=== PATIENT | female | born 1955 | race Caucasian/White ===

== ENCOUNTER 2016-10-02 15:48 | Emergency (ER) | payer OTHER ==
[2016-10-02 15:57] VITALS: BP 134/69; PULSE 67; TEMP 97.6; BMI 27.4
[2016-10-02] MEDS ORDERED: PANTOPRAZOLE SODIUM 40 MG in SODIUM CHLORIDE 100 ML IVPB ONE (19:38)
[2016-10-02] MEDS ORDERED: ONDANSETRON 4 MG/2 ML VIAL IVPUSH ONE (19:39)
[2016-10-02] MEDS ORDERED: SODIUM CHLORIDE 1,000 ML IV STA (19:39)
[2016-10-02] MEDS ORDERED: morphine CARPU-JECT 4 MG/1 ML DISP.SYRIN IVPUSH ONE (19:39)
[2016-10-02] MEDS ORDERED: morphine CARPU-JECT 2 MG/1 ML DISP.SYRIN ONE (19:54)
[2016-10-02] MEDS ORDERED: ONDANSETRON 4 MG/2 ML VIAL ONE (19:54)
--- NOTE | 2016-10-02 20:12 | PDOC ---
History of Present Illness - General Chief Complaint: Pain Stated Complaint: ABD PAIN Time Seen by Provider: 10/02/16 19:26 History Source: Patient Exam Limitations: No Limitations - History of Present Illness Travel History: No Initial Comments: 10/02/16 20:07 61yo Female patient w/ PmHx: hypothyroidism, abdominal resection r/t SBO, presents to ED c/o abdominal pain which began around 10-11 am this morning and has remained constant. Patient reports vomiting x 1, last Bm today (small amount ), 5/10 abd pain severity reported. She denies diarrhea, constipation, rectal bleeding, dysuria, hematuria, back pain, diff breathing, rash, or any other complaints at this time. Timing/Duration: reports: constant Quality: reports: moderate Abdominal Pain Onset Location: reports: generalized abdomen Pain Radiation: reports: no radiation Activities at Onset: reports: no specific activity Treatment Prior to Arrive: worse with: analgesics, antacids, cold pack, heat, laxative, enema, other Aggravating Factors: worse with: None, Defecation, Eating, Emotional upset, Exertion, [place], Movement, Voiding, Change in position Alleviating Factors: worse with: None, Belching, Shallow Breathing, Defecation, Eating, Holding Breath, Passing Gas, Change in Position, Rest, Voiding, Vomiting Past History - Travel Traveled outside of the country in the last 30 days: No Close contact w/someone who was outside of country & ill: No - Past Medical History Allergies/Adverse Reactions: Allergies Allergy/AdvReac Type Severity Reaction Status Date / Time No Known Allergies Allergy Verified 10/02/16 15:57 Home Medications: Ambulatory Orders Levothyroxine [Synthroid -] 75 mcg PO DAILY 07/22/15 Metronidazole [Flagyl -] 500 mg PO DAILY #20 tablet 10/03/16 Oxycodone HCl/Acetaminophen [Endocet 5-325 Tablet] 1 each PO Q8H PRN #12 tablet MDD 3 tabs 10/03/16 Cancer: Yes (THYROID) Thyroid Disease: Yes - Surgical History Abdominal Surgery: Yes (sbo) - Psycho/Social/Smoking Cessation Hx Anxiety: No Suicidal Ideation: No Smoking Status: No Smoking History: Never smoked Number of Cigarettes Smoked Daily: 0 Hx Alcohol Use: No Drug/Substance Use Hx: No Substance Use Type: None Abd/GI Specific PMHX - Complaint Specific PMHX Colitis: No Diverticulitis: No Gall Bladder Disease: No GERD: No Hepatitis: No Irritable Bowel Synd (IBS): No Pancreatitis: No GI Ulcer Disease: No Review of Systems - Review of Systems Able to Perform ROS?: Yes Is the patient limited Liberian proficient: No Constitutional: No: Chills, Fever Cardiac (ROS): No: Chest Pain ABD/GI: Yes: Vomiting, Abdominal cramping. No: Abdominal Distended, Abd. Pain w / defecation, Blood Streaked Bowels, Constipated, Diarrhea, Difficulty Swallowing, Nausea, Poor Appetite, Poor Fluid Intake, Rectal Bleeding, Indigestion, Tarry Stools : No: Burning, Dysuria, Flank Pain, Hematuria Musculoskeletal: No: Back Pain All Other Systems: Reviewed and Negative *Physical Exam - Vital Signs Last Vital Signs Temp Pulse Resp BP Pulse Ox 97.6 F 67 20 134/69 100 10/02/16 15:54 10/02/16 15:54 10/02/16 15:54 10/02/16 15:54 10/02/16 15:54 - Physical Exam General Appearance: Yes: Nourished, Appropriately Dressed. No: Apparent Distress, Mild Distress, Moderate Distress, Severe Distress Respiratory/Chest: positive: Lungs Clear, Normal Breath Sounds. negative: Chest Tender, Respiratory Distress, Accessory Muscle Use, Labored Respiration, Rapid RR, Stridor, Wheezing Cardiovascular: positive: Regular Rhythm, Regular Rate Gastrointestinal/Abdominal: positive: Tender, Soft, Decreased BS, Tenderness ( Mid abdominal). negative: Distended, Guarding, Rebound Musculoskeletal: positive: Normal Inspection. negative: CVA Tenderness Extremity: positive: Normal Capillary Refill, Normal Inspection, Normal Range of Motion. negative: Pedal Edema, Swelling, Calf Tenderness, Erythema, Inflammation Integumentary: positive: Normal Color, Dry, Warm. negative: Moist, Swelling, Ecchymosis, Bruising Neurologic: positive: tire retreader II-XII NML intact, Fully Oriented, Alert, Normal Mood/ Affect, Normal Response, Motor Strength /5 ED Treatment Course - LABORATORY CBC & Chemistry Diagram: 10/02/16 19:40 10/02/16 21:45 - RADIOLOGY Radiology Studies Ordered: Category Date Time Status ABDOMEN & PELVIS CT WITH CONTR [CT] Stat CT Scan 10/02/16 19:39 Ordered *DC/Admit/Observation/Transfer Diagnosis at time of Disposition: Enteritis - Discharge Dispostion Disposition: HOME Condition at time of disposition: Stable Admit: No - Prescriptions Prescriptions: Oxycodone HCl/Acetaminophen [Endocet 5-325 Tablet] 1 each PO Q8H PRN #12 tablet MDD 3 tabs PRN Reason: Severe Pain Metronidazole [Flagyl -] 500 mg PO DAILY #20 tablet - Patient Instructions Printed Discharge Instructions: Inflammatory Bowel Disease Additional Instructions: Follow up with your primary care provider for further evaluation. Take medications as prescribed. Endocet for pain as needed. Do not drive, drink alcohol, or operate heavy machinery while taking Endocet. Drink plenty water. Avoid spicy foods, alcohol, diary products, Motrin/Ibuprofen until symptom subside. Return if any concerns for further evaluation. Print Language: BELARUSIAN
[2016-10-02 20:26] LABS: BASOPHIL 0.4 % (0-2.0); MCHC 33.5 g/dl (32.0-36.0); MEAN CELL VOLUME 89.7 fl (80-96); MEAN PLT VOLUME 9.4 fl (7.5-11.1); PLATELET COUNT 266 K/MM3 (134-434); RDW 13.8 % (11.6-15.6); WHITE BLOOD COUNT 10.8 K/mm3 (4.0-10.0)
[2016-10-02 20:43] LABS: URINE APPEARANCE CLEAR; URINE BILIRUBIN NEGATIVE (NEGATIVE); URINE BLOOD 2+ (NEGATIVE); URINE COLOR LTYELLOW; URINE GLUCOSE (UA) NEGATIVE (NEGATIVE); URINE KETONE NEGATIVE (NEGATIVE); URINE LEUK ESTERASE NEGATIVE (NEGATIVE); URINE NITRITE NEGATIVE (NEGATIVE); URINE PROTEIN NEGATIVE (NEGATIVE); URINE UROBILINOGEN NEGATIVE mg/dL (0.2-1.0)
--- NOTE | 2016-10-02 20:52 | PDOC ---
*Physical Exam - Vital Signs Last Vital Signs Temp Pulse Resp BP Pulse Ox 97.6 F 67 20 134/69 100 10/02/16 15:54 10/02/16 15:54 10/02/16 15:54 10/02/16 15:54 10/02/16 15:54 ED Treatment Course - LABORATORY CBC & Chemistry Diagram: 10/02/16 19:40 10/02/16 21:45 - Medications Given in the ED: ED Medications Discontinued Medications Generic Name Dose Route Start Last Admin Trade Name Freq PRN Reason Stop Dose Admin Pantoprazole Sodium 40 mg/ 100 mls @ 200 mls/hr 10/02/16 19:38 10/02/16 20:34 Sodium Chloride IVPB 10/02/16 20:07 Not Given ONCE ONE Sodium Chloride 1,000 mls @ 1,000 mls/hr 10/02/16 19:39 10/02/16 20:34 Normal Saline - IV 10/02/16 20:38 1,000 mls/hr ASDIR STA Administration Morphine Sulfate 4 mg 10/02/16 19:39 10/02/16 20:34 Morphine Injection - IVPUSH 10/02/16 19:40 Not Given ONCE ONE Ondansetron HCl 4 mg 10/02/16 19:39 10/02/16 20:34 Zofran Injection IVPUSH 10/02/16 19:40 Not Given ONCE ONE Medical Decision Making - Medical Decision Making 10/02/16 20:52 agree with care from LUÍS Barry *DC/Admit/Observation/Transfer Diagnosis at time of Disposition: Enteritis - Discharge Dispostion Disposition: HOME Condition at time of disposition: Stable - Prescriptions Prescriptions: Oxycodone HCl/Acetaminophen [Endocet 5-325 Tablet] 1 each PO Q8H PRN #12 tablet MDD 3 tabs PRN Reason: Severe Pain Metronidazole [Flagyl -] 500 mg PO DAILY #20 tablet - Referrals Referrals: Deirdre Campbell MD [Primary Care Provider] - - Patient Instructions Printed Discharge Instructions: Inflammatory Bowel Disease Additional Instructions: Follow up with your primary care provider for further evaluation. Take medications as prescribed. Endocet for pain as needed. Do not drive, drink alcohol, or operate heavy machinery while taking Endocet. Drink plenty water. Avoid spicy foods, alcohol, diary products, Motrin/Ibuprofen until symptom subside. Return if any concerns for further evaluation. Print Language: LIBERIAN
[2016-10-02 20:57] LABS: URINE RBC 13 /hpf (0-3); URINE WBC 3 /hpf (3-5)
[2016-10-02 22:34] LABS: ALBUMIN 3.7 g/dl (3.4-5.0); AMYLASE 73 U/L (25-115); ANION GAP 9 (8-16); BILIRUBIN,DIRECT < 0.2 mg/dL (0.0-0.2); BILIRUBIN,TOTAL 0.4 mg/dL (0.2-1.0); CALCIUM 8.9 mg/dL (8.5-10.1); CO2 26 mmol/L (21-32); CREATININE 0.7 mg/dL (0.55-1.02); GLUCOSE,RANDOM 92 mg/dL (74-106); SGOT/AST 12 U/L (15-37); SGPT/ALT 23 U/L (12-78); TOT PROT 6.8 g/dl (6.4-8.2)
[2016-10-02 22:36] LABS: ALK PHOS 74 U/L (45-117); CPK 74 IU/L (26-192); TROPONIN I < 0.02 ng/ml (0.00-0.05)
[2016-10-03] MEDS ORDERED: metroNIDAZOLE 500 MG TABLET PO ONE (01:54)
[2016-10-03] MEDS ORDERED: metroNIDAZOLE 250 MG TABLET ONE (02:19)
== END 2016-10-03 04:53 | disposition home or self-care (01) ==
LOC: JER 15:48
PROC: 3E033NZ Introduction of Analgesics, Hypnotics, Sedatives into Peripheral Vein, Percutaneous Approach (ICD-10-PCS; principal; 2016-10-02)
PROC: 3E033GC Introduction of Other Therapeutic Substance into Peripheral Vein, Percutaneous Approach (ICD-10-PCS; 2016-10-02)
DX: K52.9 Noninfective gastroenteritis and colitis, unspecified (principal); Z85.850 Personal history of malignant neoplasm of thyroid
CPT/HCPCS: 36415; 74177-TC; 80048; 80076; 81003; 81015; 82150; 83690; 84484; 85025; 99284-25

== ENCOUNTER 2017-10-14 19:50 | Emergency (ER) | payer OTHER ==
[2017-10-14 20:09] VITALS: BP 132/70; PULSE 78; TEMP 98.7; BMI 27.4
--- NOTE | 2017-10-14 20:09 | PDOC ---
Rapid Medical Evaluation Time Seen by Provider: 10/14/17 20:02 Medical Evaluation: Allergies Allergy/AdvReac Type Severity Reaction Status Date / Time No Known Allergies Allergy Verified 10/02/16 15:57 10/14/17 20:02 I have performed a brief in-person evaluation of this patient. The patient presents with a chief complaint of:left calf pain X 2 days , recent travel to [place] Pertinent physical exam findings:b/l calf tenderness for several days, L >R, + tenderness noted on L calf, + varicous vein I have ordered the following: duplex sono ordered The patient will proceed to the ED for further evaluation. 10/14/17 20:09 Discharge Disposition - Diagnosis Leg cramping - Discharge Dispostion Disposition: HOME Condition at time of disposition: Stable - Referrals Referrals: Patricio Henao MD [Primary Care Provider] - - Patient Instructions Printed Discharge Instructions: Nocturnal Leg Cramps, DI for Nocturnal Leg Cramps, Stretching Routine Before Bedtime May Decrease Nighttime Leg Cramps Additional Instructions: Return to the emergency room should his symptoms worsen or go unresolved. Please stay well-hydrated and drink plenty of water and increase her potassium intake with bananas 2-3 bananas a day. Follow-up with her primary care physician one to 2 days and again return to the emergency room should symptoms go unresolved. - Post Discharge Activity
--- NOTE | 2017-10-14 20:57 | PDOC ---
History of Present Illness - General Chief Complaint: Edema Stated Complaint: LEFT LEG PAIN Time Seen by Provider: 10/14/17 20:02 - History of Present Illness Initial Comments: 62-year-old female with a past medical history significant for hypothyroidism calf pain times one week. Atraumatic and onset. Also complains of intermittent night cramps in her legs. 10/14/17 20:54 10/14/17 20:55 Past History - Past Medical History Allergies/Adverse Reactions: Allergies Allergy/AdvReac Type Severity Reaction Status Date / Time No Known Allergies Allergy Verified 10/14/17 20:04 Home Medications: Ambulatory Orders Levothyroxine [Synthroid -] 75 mcg PO DAILY 07/22/15 Cancer: Yes (THYROID) COPD: No DVT: No Thyroid Disease: Yes - Surgical History Abdominal Surgery: Yes (sbo) - Suicide/Smoking/Psychosocial Hx Smoking Status: No Smoking History: Never smoked Have you smoked in the past 12 months: No Number of Cigarettes Smoked Daily: 0 Information on smoking cessation initiated: No Hx Alcohol Use: No Drug/Substance Use Hx: No Substance Use Type: None Review of Systems - Review of Systems Musculoskeletal: Yes: Muscle Pain All Other Systems: Reviewed and Negative *Physical Exam - Vital Signs Last Vital Signs Temp Pulse Resp BP Pulse Ox 98.7 F 78 16 132/70 99 10/14/17 20:04 10/14/17 20:04 10/14/17 20:04 10/14/17 20:04 10/14/17 20:04 - Physical Exam Comments: Bilateral calves are soft with mild tenderness about both medial gastroc there is no edema. Dorsal pedal and posterior tibial pulses are symmetric. There are no gross sensorimotor deficits she is neurovascularly intact. 10/14/17 20:55 Medical Decision Making - Medical Decision Making Doppler studies were reviewed and negative. She does have mild intermittent leg cramping. Have advised her on hydration and increasing her potassium intake she will follow up with her primary care physician 10/14/17 20:56 *DC/Admit/Observation/Transfer Diagnosis at time of Disposition: Leg cramping - Discharge Dispostion Disposition: HOME Condition at time of disposition: Stable Decision to Admit order: No - Referrals Referrals: Patricio Henao MD [Primary Care Provider] - - Patient Instructions Printed Discharge Instructions: Nocturnal Leg Cramps, DI for Nocturnal Leg Cramps, Stretching Routine Before Bedtime May Decrease Nighttime Leg Cramps Additional Instructions: Return to the emergency room should his symptoms worsen or go unresolved. Please stay well-hydrated and drink plenty of water and increase her potassium intake with bananas 2-3 bananas a day. Follow-up with her primary care physician one to 2 days and again return to the emergency room should symptoms go unresolved. - Post Discharge Activity
== END 2017-10-14 21:01 | disposition home or self-care (01) ==
LOC: JERFT 19:50
DX: R25.2 Cramp and spasm (principal); Z85.850 Personal history of malignant neoplasm of thyroid
CPT/HCPCS: 93970-TC; 99281-25

== ENCOUNTER 2017-12-14 08:25 | Emergency (ER) | payer OTHER ==
[2017-12-14 08:36] VITALS: BP 137/95; PULSE 70; TEMP 98.3; BMI 27.4
--- NOTE | 2017-12-14 08:46 | PDOC ---
History of Present Illness - General Chief Complaint: Blood Pressure Problem Stated Complaint: HIGH BLOOD PRESSURE & SHOULDER PAIN Time Seen by Provider: 12/14/17 08:40 History Source: Patient Exam Limitations: No Limitations - History of Present Illness Initial Comments: 12/14/17 09:06 Patient is a 62-year-old female with past medical history of hypertension, who presents to the emergency department today for right shoulder pain and complaints that her blood pressure is elevated today. Patient states that she woke up and her right shoulder hurts. She denies falling, trauma. She states that she was lifting her granddaughter in and out of the car on Friday. She states that she took her blood pressure medication this morning and noted her blood pressure was 139/100 she presents to emergency department for evaluation. Patient is taking ibuprofen for her shoulder pain and headaches. Denies fevers, chills, current headache, neck pain, nausea, vomiting, numbness and tingling to the extremities and weakness. Pt is R hand dominant Past History - Travel Traveled outside of the country in the last 30 days: No Close contact w/someone who was outside of country & ill: No - Past Medical History Allergies/Adverse Reactions: Allergies Allergy/AdvReac Type Severity Reaction Status Date / Time No Known Allergies Allergy Verified 12/14/17 08:34 Home Medications: Ambulatory Orders Levothyroxine [Synthroid -] 75 mcg PO DAILY 07/22/15 Losartan/Hydrochlorothiazide [Losartan-Hctz 100-25 mg Tab] 12/14/17 Cancer: Yes (THYROID) COPD: No DVT: No HTN: Yes Thyroid Disease: Yes - Surgical History Abdominal Surgery: Yes (sbo) - Suicide/Smoking/Psychosocial Hx Smoking Status: No Smoking History: Never smoked Have you smoked in the past 12 months: No Number of Cigarettes Smoked Daily: 0 Hx Alcohol Use: No Drug/Substance Use Hx: No Substance Use Type: None Review of Systems - Review of Systems Able to Perform ROS?: Yes Comments:: 12/14/17 08:46 CONSTITUTIONAL: Absent: fever, chills, diaphoresis, generalized weakness, malaise, loss of appetite HEENT: Absent: rhinorrhea, nasal congestion, throat pain, throat swelling, difficulty swallowing, mouth swelling, ear pain, eye pain, visual Changes CARDIOVASCULAR: Absent: chest pain, loss of consciousness, palpitations, irregular heart rate, peripheral edema RESPIRATORY: Absent: cough, shortness of breath, dyspnea with exertion, orthopnea, wheezing, stridor, hemoptysis GASTROINTESTINAL: Absent: abdominal pain, abdominal distension, nausea, vomiting, diarrhea, constipation, melena, hematochezia GENITOURINARY: Absent: dysuria, frequency, urgency, hesitancy, hematuria, flank pain, genital pain MUSCULOSKELETAL: Present: R shoulder pain Absent: myalgia, arthralgia, joint swelling SKIN: Absent: rash, itching, pallor HEMATOLOGIC/IMMUNOLOGIC: Absent: easy bleeding, easy bruising, lymphadenopathy, frequent infections ENDOCRINE: Absent: unexplained weight gain, unexplained weight loss, heat intolerance, cold intolerance NEUROLOGIC: Absent: headache, focal weakness or paresthesias, dizziness, unsteady gait, seizure, mental status changes, bladder or bowel incontinence PSYCHIATRIC: Absent: anxiety, depression, suicidal or homicidal ideation, hallucinations. Is the patient limited Urdu proficient: No *Physical Exam - Vital Signs Last Vital Signs Temp Pulse Resp BP Pulse Ox 98.3 F 70 18 137/95 97 12/14/17 08:31 12/14/17 08:31 12/14/17 08:31 12/14/17 08:31 12/14/17 08:31 - Physical Exam Comments: 12/14/17 08:46 GENERAL: Well developed, well nourished. Awake and alert. No acute distress. NECK: Supple. Full ROM. No JVD. Carotid pulses 2+ and symmetric, without bruits. No thyromegaly. No lymphadenopathy. CARDIOVASCULAR: Regular rate and rhythm. No murmurs, rubs, or gallops. Distal pulses are 2+ and symmetric. PULMONARY: No evidence of respiratory distress. Lungs clear to auscultation bilaterally. No wheezing, rales or rhonchi. MUSCULOSKELETAL TTP of the R short head biceps tendon. Full ROM of R shoulder present. Normal range of motion at all joints. No bony deformities or tenderness. No CVA tenderness. EXTREMITIES: No cyanosis. No clubbing. No edema. No calf tenderness. SKIN: Warm and dry. Normal capillary refill. No rashes. No jaundice. NEUROLOGICAL: Alert, awake, appropriate. Cranial nerves 2-12 intact. No deficits to light touch and temperature in face, upper extremities and lower extremities. No motor deficits in the in face, upper extremities and lower extremities. Normoreflexic in the upper and lower extremities. Normal speech. Toes are down- going bilaterally. Gait is normal without ataxia. PSYCHIATRIC: Cooperative. Good eye contact. Appropriate mood and affect. Medical Decision Making - Medical Decision Making 12/14/17 09:16 Patient is a 62-year-old female past medical and hypertension, who presents to emergency department today for right shoulder pain. On exam patient with tenderness to palpation of the right biceps tendon. Positive speed's test. Most likely tendinitis of the biceps tendon at this time. Range of motion of the shoulders intact. Patient states that she takes ibuprofen for headaches and pain. This could be a cause for her elevated blood pressure. Advised patient to switch to Tylenol at this time. Ortho follow-up given. Discharge home. I discussed the physical exam findings, ancillary test results and final diagnoses with the patient. I answered all of the patient's questions. The patient was satisfied with the care received and felt comfortable with the discharge plan and treatment plan. The Patient agrees to follow up with the primary care physician/specialist within 24-72 hours. Return precautions were given. *DC/Admit/Observation/Transfer Diagnosis at time of Disposition: Tendonitis of shoulder, right - Discharge Dispostion Disposition: HOME Condition at time of disposition: Stable Decision to Admit order: No - Referrals Referrals: Deirdre Campbell MD [Primary Care Provider] - Chris York MD [Staff Physician] - - Patient Instructions Printed Discharge Instructions: DI for Shoulder Tendinopathy Additional Instructions: Tienes tendinitis de [facility]. [place] Tylenol 650 mg cada 4 horas segn sea necesario para el dolor. Por favor, aplique calor a la jonathon. Por favor, ramos un seguimiento con ortopedia si aris sntomas no mejoran y 3-5 antoine. Evite louis ibuprofeno ya que puede elevar johnson presin arterial. Regrese al departamento de emergencias para cualquier sntoma nuevo o que empeore. You have tendinitis of your right shoulder. Please take Tylenol 650 mg every 4 hours as needed for pain. Please apply heat to the area. Please follow up with orthopedics if her symptoms are not improving and 3-5 days. Please avoid taking ibuprofen as this can raise your blood pressure. Return to the emergency department for any new or worsening symptoms. - Post Discharge Activity
== END 2017-12-14 09:17 | disposition home or self-care (01) ==
LOC: JERFT 08:25 → JER 08:25 → JERFT 09:17
DX: M75.81 Other shoulder lesions, right shoulder (principal); I10 Essential (primary) hypertension
CPT/HCPCS: 99281-25

== ENCOUNTER 2020-05-28 18:55 | Emergency (ER) | payer OTHER ==
[2020-05-28 19:12] VITALS: BP 144/87; PULSE 76; TEMP 98.9; BMI 26.8
[2020-05-28] MEDS ORDERED: ACETAMINOPHEN 500 MG TABLET (FP) PO ONE (19:56)
[2020-05-28] MEDS ORDERED: ACETAMINOPHEN 325 MG TABLET (FP) ONE (20:07)
== END 2020-05-28 21:02 | disposition home or self-care (01) ==
LOC: JER 18:55
DX: S61.452A Open bite of left hand, initial encounter (principal); S09.90XA Unspecified injury of head, initial encounter
CPT/HCPCS: 70450-TC; 99284-25

== ENCOUNTER 2020-09-05 09:21 | Emergency (ER) | payer OTHER ==
[2020-09-05 09:30] VITALS: BP 132/85; PULSE 70; TEMP 97.9; BMI 25.8
[2020-09-05] MEDS ORDERED: ACETAMINOPHEN 500 MG TABLET (FP) PO ONE (11:43)
[2020-09-05] MEDS ORDERED: ACETAMINOPHEN 500 MG TABLET (FP) ONE (11:54)
== END 2020-09-05 11:57 | disposition home or self-care (01) ==
LOC: JERFT 09:21
DX: S99.921A Unspecified injury of right foot, initial encounter (principal)
CPT/HCPCS: 73610-TC-RT-FY; 73630-TC-RT-FY; 99283-25

== ENCOUNTER 2020-09-09 15:38 | Emergency (ER) | payer OTHER ==
[2020-09-09 15:46] VITALS: BP 142/86; PULSE 78; TEMP 98.5; BMI 25.8
[2020-09-09] MEDS ORDERED: IBUPROFEN 600 MG TABLET (FP) PO ONE ×2 (17:40→17:45)
== END 2020-09-09 17:52 | disposition home or self-care (01) ==
LOC: JERFT 15:38
DX: S93.491A Sprain of other ligament of right ankle, initial encounter (principal)
CPT/HCPCS: 73610-TC-RT-FY; 73630-TC-RT-FY; 99284-25

== ENCOUNTER 2020-12-05 10:57 | Emergency (ER) | payer OTHER ==
[2020-12-05 11:14] VITALS: BMI 25.8
[2020-12-05 12:15] LABS: BASO % 0.5 % (0-2.0); EOS % 2.8 % (0-4.5); HEMATOCRIT 40.5 % (32.4-45.2); HEMOGLOBIN 13.4 GM/dL (10.7-15.3); LYMPH % 28.9 % (8-40); MCH 29.9 pg (25.7-33.7); MCHC 33.1 g/dl (32.0-36.0); MEAN CELL VOLUME 90.5 fl (80-96); MEAN PLT VOLUME 8.1 fl (7.5-11.1); MONO % 9.3 % (3.8-10.2); NEUT % 58.5 % (42.8-82.8); PLATELET COUNT 278 10^3/uL (134-434); RBC 4.48 M/mm3 (3.60-5.2); RDW 14.3 % (11.6-15.6); WHITE BLOOD COUNT 5.3 K/mm3 (4.0-10.0)
[2020-12-05 12:25] LABS: EPI CELLS 2 /uL (0-25.1); HYALINE CASTS 0 /uL (0-3.1); URINE APPEARANCE CLEAR; URINE BACTERIA 4 /uL (0-1359); URINE BILIRUBIN NEGATIVE (NEGATIVE); URINE COLOR YELLOW; URINE GLUCOSE (UA) NEGATIVE (NEGATIVE); URINE KETONE NEGATIVE (NEGATIVE); URINE LEUK ESTERASE NEGATIVE (NEGATIVE); URINE NITRITE NEGATIVE (NEGATIVE); URINE PROTEIN NEGATIVE (NEGATIVE); URINE RBC 19 /uL (0-23.9); URINE UROBILINOGEN 0.2 mg/dL (0.2-1.0); URINE WBC 3 /uL (0-25.8)
[2020-12-05 12:32] LABS: SODIUM 142 mmol/L (136-145)
[2020-12-05 12:34] LABS: CALCIUM 9.3 mg/dL (8.5-10.1)
[2020-12-05 12:35] LABS: ALBUMIN 3.5 g/dl (3.4-5.0); CO2 29 mmol/L (21-32); GLUCOSE,RANDOM 90 mg/dL (74-106)
[2020-12-05 12:38] LABS: SGOT/AST 16 U/L (15-37); SGPT/ALT 20 U/L (13-61)
[2020-12-05 12:40] LABS: BILIRUBIN,TOTAL 0.3 mg/dL (0.2-1)
[2020-12-05 12:41] LABS: ALK PHOS 72 U/L (45-117)
[2020-12-05 12:43] LABS: ANION GAP 5 MMOL/L (8-16); CHLORIDE 108 mmol/L (98-107); CREATININE 0.8 mg/dL (0.55-1.3)
[2020-12-05] MEDS ORDERED: MECLIZINE HCL 25 MG TABLET (FP) PO ONE (13:10)
[2020-12-05] MEDS ORDERED: MECLIZINE HCL 25 MG TABLET (FP) ONE (13:22)
[2020-12-05] MEDS ORDERED: SODIUM CHLORIDE 1,000 ML IV STA (13:23)
[2020-12-05 16:21] VITALS: BP 128/83; PULSE 76; TEMP 98.3
== END 2020-12-05 16:48 | disposition home or self-care (01) ==
LOC: JER 10:57
PROC: 3E0337Z Introduction of Electrolytic and Water Balance Substance into Peripheral Vein, Percutaneous Approach (ICD-10-PCS; principal; 2020-12-05)
DX: R53.1 Weakness (principal); R42 Dizziness and giddiness; R07.89 Other chest pain
CPT/HCPCS: 36415; 71046-TC-FY; 80053; 81003; 82550; 84439; 84443; 84484; 85025; 87077; 87086; 93005; 93010; 99285-25; C9803; U0003; U0005

== ENCOUNTER 2023-04-03 15:26 | Emergency (ER) | payer OTHER ==
[2023-04-03 15:35] VITALS: BP 130/82; PULSE 73; RESP 19; TEMP 98.6; BMI 29.2
[2023-04-03 16:54] LABS: EPI CELLS 7 /uL (0-25.1); HYALINE CASTS 0 /uL (0-3.1); PH,URINE 5.5 (5.0-8.0); URINE APPEARANCE CLEAR; URINE BACTERIA 59 /uL (0-1359); URINE BILIRUBIN NEGATIVE (NEGATIVE); URINE COLOR YELLOW; URINE GLUCOSE (UA) NEGATIVE (NEGATIVE); URINE KETONE NEGATIVE (NEGATIVE); URINE LEUK ESTERASE TRACE (NEGATIVE); URINE NITRITE NEGATIVE (NEGATIVE); URINE PROTEIN NEGATIVE (NEGATIVE); URINE RBC 25 /uL (0-23.9); URINE UROBILINOGEN 0.2 mg/dL (0.2-1.0); URINE WBC 18 /uL (0-25.8)
[2023-04-03] MEDS ORDERED: ACETAMINOPHEN INJECTION 100 ML IVPB ONE (16:56)
[2023-04-03] MEDS: ACETAMINOPHEN 1000 MG/100 ML BAG IVPB ONE (17:10)
[2023-04-03] MEDS: SODIUM CHLORIDE 1,000 ML IV STA (17:10)
[2023-04-03 17:20] LABS: BASO % 0.7 % (0-2.0); HEMATOCRIT 40.5 % (32.4-45.2); HEMOGLOBIN 13.4 GM/dL (10.7-15.3); LYMPH % 36.8 % (8-40); MCH 30.2 pg (25.7-33.7); MCHC 33.2 g/dl (32.0-36.0); MEAN PLT VOLUME 8.5 fl (7.5-11.1); MONO % 6.7 % (3.8-10.2); NEUT % 53.8 % (42.8-82.8); PLATELET COUNT 281 10^3/uL (134-434); RBC 4.45 M/mm3 (3.60-5.2); RDW 14.2 % (11.6-15.6); WHITE BLOOD COUNT 7.5 K/mm3 (4.0-10.0)
[2023-04-03 18:06] LABS: CALCIUM 9.8 mg/dL (8.5-10.1)
[2023-04-03 18:09] LABS: CREATININE 0.8 mg/dL (0.55-1.3)
[2023-04-03 18:11] LABS: BILIRUBIN,TOTAL 0.4 mg/dL (0.2-1); TOT PROT 7.6 g/dl (6.4-8.2)
[2023-04-03] MEDS ORDERED: CEFTRIAXONE 1 GM/50 ML BAG ONE (18:22)
[2023-04-03] MEDS: CEFTRIAXONE 1 GM in DEXTROSE 5%-WATER - 100 ML IVPB ONE (18:27)
== END 2023-04-03 18:44 | disposition home or self-care (01) ==
LOC: JERFT 15:26
PROC: 3E03329 Introduction of Other Anti-infective into Peripheral Vein, Percutaneous Approach (ICD-10-PCS; principal; 2023-04-03)
PROC: 3E033NZ Introduction of Analgesics, Hypnotics, Sedatives into Peripheral Vein, Percutaneous Approach (ICD-10-PCS; 2023-04-03)
PROC: 3E0337Z Introduction of Electrolytic and Water Balance Substance into Peripheral Vein, Percutaneous Approach (ICD-10-PCS; 2023-04-03)
DX: N39.0 Urinary tract infection, site not specified (principal); R10.30 Lower abdominal pain, unspecified; R35.0 Frequency of micturition; M54.50 Low back pain, unspecified; R30.9 Painful micturition, unspecified
CPT/HCPCS: 36415; 80053; 81003; 85025; 87086; 96361; 96365; 96374; 99284-25; J0131

== ENCOUNTER 2024-07-27 19:03 | Emergency (ER) | payer OTHER ==
[2024-07-27 19:27] VITALS: BP 154/82; PULSE 73; RESP 20; TEMP 98.6; BMI 28.3
[2024-07-27] MEDS: KETOROLAC TROMETHAMINE 15 MG/ML VIAL IM ONE (20:11)
[2024-07-27] MEDS ORDERED: LIDOCAINE 5% TOPICAL PATCH ONE (20:19)
[2024-07-27] MEDS ORDERED: ACETAMINOPHEN 325 MG TABLET (FP) ONE (20:19)
[2024-07-27] MEDS ORDERED: KETOROLAC TROMETHAMINE 15 MG/ML VIAL ONE (20:19)
[2024-07-27] MEDS ORDERED: MAG HYDROX/AL HYDROX/SIMETH 30 ML UNIT-DOSE CUP ONE (20:19)
[2024-07-27] MEDS ORDERED: FAMOTIDINE 20 MG/50 ML IVPB 20 MG/50 ML MG IVPB ONE (20:20)
[2024-07-27] MEDS: KETOROLAC TROMETHAMINE 15 MG/ML VIAL IVPUSH ONE (20:34)
[2024-07-27] MEDS: FAMOTIDINE 20 MG/50 ML IVPB 20 MG/50 ML MG IVPB ONE (20:34)
[2024-07-27] MEDS: ACETAMINOPHEN 325 MG TABLET (FP) PO ONE (20:34)
[2024-07-27] MEDS: LIDOCAINE 5% TOPICAL PATCH TP ONE (20:34)
[2024-07-27] MEDS: MAG HYDROX/AL HYDROX/SIMETH 30 ML UNIT-DOSE CUP PO ONE (20:34)
[2024-07-27 20:51] LABS: HEMATOCRIT 40.1 % (34.1-44.9); HEMOGLOBIN 12.9 g/dL (11.2-15.7); MCHC 32.2 g/dl (32.2-35.5); MEAN CELL VOLUME 93.3 fl (79.4-94.8); PLATELET COUNT 253 x10^3/uL (182-369); RDW 14.4 % (12.4-16.4)
[2024-07-27 21:05] LABS: INR 0.94 (0.83-1.09); PROTHROMBIN TIME (PATIENT) 10.3 SEC (9.7-13.0)
[2024-07-27 21:12] LABS: EPI CELLS 7 /uL (0-25.1); HYALINE CASTS 0 /uL (0-3.1); PH,URINE 6.5 (5.0-8.0); POTASSIUM 4.5 mmol/L (3.5-5.1); URINE APPEARANCE CLEAR; URINE BACTERIA 21 /uL (0-1359); URINE BILIRUBIN NEGATIVE (NEGATIVE); URINE COLOR YELLOW; URINE GLUCOSE (UA) NEGATIVE (NEGATIVE); URINE KETONE NEGATIVE (NEGATIVE); URINE LEUK ESTERASE TRACE (NEGATIVE); URINE NITRITE NEGATIVE (NEGATIVE); URINE PROTEIN NEGATIVE (NEGATIVE); URINE RBC 74 /uL (0-23.9); URINE UROBILINOGEN 0.2 mg/dL (0.2-1.0); URINE WBC 21 /uL (0-25.8)
[2024-07-27 21:15] LABS: CALCIUM 9.6 mg/dL (8.5-10.1)
[2024-07-27 21:16] LABS: ALBUMIN 3.7 g/dl (3.4-5.0); BLOOD UREA NITROGEN 18.2 mg/dL (7-18); MAGNESIUM 2.4 mg/dL (1.8-2.4)
[2024-07-27 21:19] LABS: CREATININE 1.1 mg/dL (0.55-1.3)
[2024-07-27 21:20] LABS: BILIRUBIN,TOTAL 0.2 mg/dL (0.2-1); TOT PROT 6.7 g/dl (6.4-8.2)
[2024-07-27] MEDS ORDERED: LIDOCAINE PATCH REMOVAL MC SCH (22:00)
== END 2024-07-27 21:46 | disposition home or self-care (01) ==
LOC: JER 19:03
PROC: 3E033GC Introduction of Other Therapeutic Substance into Peripheral Vein, Percutaneous Approach (ICD-10-PCS; principal; 2024-07-27)
PROC: 3E0333Z Introduction of Anti-inflammatory into Peripheral Vein, Percutaneous Approach (ICD-10-PCS; 2024-07-27)
DX: S39.012A Strain of muscle, fascia and tendon of lower back, initial encounter (principal); R07.89 Other chest pain; X58.XXXA Exposure to other specified factors, initial encounter
CPT/HCPCS: 36415; 71046-TC-FY; 80053; 81003; 83735; 84484; 85027; 85610; 85730; 87086; 93005; 93010; 96365; 96375; 99285-25